=== PATIENT | male | born 1975 ===

== ENCOUNTER 2021-07-06 07:15 | Inpatient (IN) | payer OTHER ==
[~2021-07-06] VITALS: Ht 175.3 cm; Wt 81.6 kg
[2021-07-11] MEDS ORDERED: SULFASALAZINE500 MG (08:21)
[2021-07-12] MEDS ORDERED: XARELTO10 MG PO (06:44)
[2021-07-12] MEDS ORDERED: INTEGRA PLUS C1 EACH PO (06:44)
== END 2021-07-12 13:20 | disposition home or self-care (01) | DRG 470 ==
LOC: ADM 07:15 → EDSTATUS 07:15 → SURG 07-10 07:15 → O/R 07-10 10:35 → SURG 07-10 10:45
PROVIDERS: ADMIT Orthopaedic Surgery Sports Medicine; ATTEND Orthopaedic Surgery Sports Medicine
PROC: 0SR903Z Replacement of Right Hip Joint with Ceramic Synthetic Substitute, Open Approach (ICD-10-PCS; principal; 2021-07-10 10:45)
DX: M16.11 Unilateral primary osteoarthritis, right hip (principal); Z20.822 Contact with and (suspected) exposure to COVID-19